=== PATIENT | female | born 1980 ===

== ENCOUNTER 2020-03-14 14:08 | Inpatient (IN) | payer SELFPAY ==
[~2020-03-14 14:08] MED LIST: ETOMIDATE INJ/PF 20 MG/10 ML SDV IV ONE
[2020-03-14] MEDS ORDERED: NALOXONE HCL INJ/PF 0.4 MG/1 ML SDV IV ONE (14:26)
[2020-03-14] MEDS ORDERED: NALOXONE HCL INJ/PF 0.4 MG/1 ML SDV ONE (14:27)
[2020-03-14 14:39] LABS: ABSOLUTE EOSINOPHILS # (AUTO) 0.1 10^3/uL (0.0-0.6); ABSOLUTE LYMPHOCYTES (AUTO) 1.1 10^3/uL (0.5-4.7); ABSOLUTE MONOCYTES (AUTO) 0.4 10^3/uL (0.1-1.4); ABSOLUTE NEUT (AUTO) 7.4 10^3/uL (1.7-8.2); BASOPHILS % (AUTO) 0.5 % (0-2); EOSINOPHILS % (AUTO) 0.8 % (0-6); HEMATOCRIT 31.9 % (36.0-47.0); HEMOGLOBIN 10.8 g/dL (12.0-15.5); LYMPHOCYTES % (AUTO) 12.2 % (13-45); MEAN CORPUSCULAR HEMOGLOBIN 25.7 pg (27.0-33.4); MEAN CORPUSCULAR VOLUME 76 fl (80-97); MONOCYTES % (AUTO) 4.8 % (3-13); PLATELET COUNT 251 10^3/uL (150-450); RED BLOOD COUNT 4.21 10^6/uL (3.72-5.28); RED CELL DISTRIBUTION WIDTH 15.8 % (11.5-14.0); SEGMENTED NEUTROPHILS % (AUTO) 81.7 % (42-78); TOTAL CELLS COUNTED % (AUTO) 100 %; WHITE BLOOD COUNT 9.1 10^3/uL (4.0-10.5)
[2020-03-14] MEDS ORDERED: SUCCINYLCHOLINE CHLORIDE INJ 200 MG/10 ML VIAL IV ONE (14:39)
[2020-03-14 15:03] LABS: ALBUMIN 3.2 g/dL (3.5-5.0); ALKALINE PHOSPHATASE 105 U/L (38-126); ANION GAP 5 (5-19); ASPARTATE AMINO TRANSFERASE 21 U/L (14-36); BILIRUBIN,TOTAL 0.4 mg/dL (0.2-1.3); BLOOD UREA NITROGEN 14 mg/dL (7-20); CALCIUM 8.4 mg/dL (8.4-10.2); CARBON DIOXIDE 25 mmol/L (22-30); CHLORIDE 106 mmol/L (98-107); GLUCOSE 175 mg/dL (75-110); POTASSIUM 4.3 mmol/L (3.6-5.0); TOTAL PROTEIN 6.3 g/dL (6.3-8.2)
[2020-03-14 15:06] LABS: ACETAMINOPHEN < 10 ug/mL (10-30); ALCOHOL < 10 mg/dL (NONE DETECTED); SALICYLATE < 1.0 mg/dL (2.0-20.0)
--- NOTE | 2020-03-14 15:07 | ER Document Report ---
ED General - General Chief Complaint: Overdose Stated Complaint: POSSIBLE OVERDOSE Time Seen by Provider: 03/14/20 14:38 - HPI Notes: Patient is a 39-year-old female with a known history of diabetes who presents to the emergency department after suicide attempt. Evidently at 1130 this morning she told her fianc, [place] the beach, that she was going to commit suicide. She tried to get her insulin but he took it from her. At that point she started taking "handfuls" of Soma. Initially she refused care from EMS, and they left. She was then found to be significantly drowsy and brought into the emergency department for further evaluation. Patient has a GCS of 3 here and can offer me no history. - Related Data Allergies/Adverse Reactions: No Known Allergies Allergy (Verified 03/14/20 15:18) Home Medications: soma. insulin Past Medical History - General Information source: Emergency Med Personnel - Social History Smoking Status: Unknown if Ever Smoked Frequency of alcohol use: None Drug Abuse: None Family History: Other - Unable to review Patient has homicidal ideation: No Endocrine Medical History: Reports: Hx Diabetes Mellitus Type 1 Musculoskeletal Medical History: Reports Hx Musculoskeletal Deformity - Back pain Review of Systems - Review of Systems -: Yes ROS unobtainable due to patient's medical condition Physical Exam - Vital signs Vitals: Resp Pulse Ox 23 H 96 03/14/20 14:16 03/14/20 14:16 - Notes Notes: This is a 39-year-old female who appears her stated age. She is sleeping on the bed. She is not sonorous, but will not awake to painful stimuli. She will not open her eyes. She will not follow commands. Vital signs reviewed, please refer to chart. Head is normocephalic, atraumatic. Pupils equal and round, 5 mm, reactive to light. Neck is supple without meningismus. Heart is regular rate and rhythm. Lungs are clear to auscultation bilaterally. Abdomen is soft, nontender, normoactive bowel sounds throughout. Extremities without cyanosis, clubbing. Peripheral pulses are equal. Skin is warm and dry. No gross facial asymmetry. GCS 3. Course - Re-evaluation Re-evalutation: 03/14/20 16:45 Patient presents to the emergency department for evaluation. She had an intentional overdose of Soma, unknown dosage. Her ingestion was at 1130. By the time she got to me she had a GCS of 3. She had no purposeful movement. She was observed, but I was concerned about her airway, so decision was made to intubate. Please see separate procedure note. Patient was sedated with Versed and then propofol. Her test is pending, but otherwise her laboratory investigations failed to reveal any significant abnormality. IVC paperwork was filled out. We did have frequent titration of her sedation medication secondary to increased movement and agitation, hypertension. I spoke with Dr. Resendiz, he graciously accepted the patient to the unit for further care. 03/14/20 18:31 Patient remained stable, intubated, sedated. Awaiting ICU bed. - Vital Signs Vital signs: Temp Pulse Resp BP Pulse Ox 12 147/90 H 100 03/14/20 17:51 03/14/20 17:51 03/14/20 17:51 - Laboratory Result Diagrams: 03/14/20 14:19 03/14/20 14:19 Laboratory results interpreted by me: 03/14/20 03/14/20 03/14/20 14:19 14:19 15:38 Hgb 10.8 L Hct 31.9 L MCV 76 L MCH 25.7 L RDW 15.8 H Lymph % (Auto) 12.2 L Seg Neutrophils % 81.7 H Sodium 135.5 L Creatinine 0.49 L Glucose 175 H Albumin 3.2 L Urine Protein 30 H Salicylates < 1.0 L Acetaminophen < 10 L - Diagnostic Test Radiology reviewed: Reports reviewed Radiology results interpreted by me: 03/14/20 16:47 Chest X-Ray 03/14/20 15:08 IMPRESSION: Borderline heart size with no zach pulmonary edema. Endotracheal tube and NG tube as described. - EKG Interpretation by Me Additional EKG results interpreted by me: 03/14/20 16:48 Sinus with a rate of 87 bpm. Normal axis and intervals. No acute ST changes concerning for ischemia or infarction. Procedures - Intubation Orotracheal Time of Intubation: 15:03 Mallampati Classification: Class 2 Medications: Etomidate, Succinylcholine Intubation method: Orotracheal Blade type: Raman Blade size: 3 Equipment used: Glidescope ETT size: 7.0 ETT secured at: Lips ETT secured at (cm): 21 Breath Sounds after Intubation: Equal End tidal CO2 confirmed: Yes Critical Care Note - Critical Care Note Total time excluding time spent on procedures (mins): 20 Discharge - Discharge Clinical Impression: Intentional overdose of drug in tablet form, Suicide attempt Condition: Stable Disposition: ADMITTED OBSERVATION Admitting Provider: Martín (Alarm Mechanism Adjuster) Unit Admitted: ICU
[2020-03-14] MEDS ORDERED: PROPOFOL 1,000 MG/100 ML INFUS..BTL IV PRN ×2 (15:09→17:19)
--- NOTE | 2020-03-14 15:13 | PSYCHOLOGICAL NOTE ---
Psych Note - Psych Note Date seen by psych provider: 03/14/20 Time seen by psych provider: 15:00 Psych Note: Clinician received phone call from mobile crisis responder. They report they were called out for an Savannah Mian. Patient reportedly got into an argument with her fianc. Patient's fianc states that the patient has had a difficult week. They are currently here on vacation from the [facility]. She continued to disclose that the patient is type I diabetic and after the argument the patient was attempting to grab her insulin bag however her fianc took it from her. At that point the patient reportedly grabbed Soma 60mg pills and "started eating handfuls." Mobile crisis reports that the patient had an attempt approximately 3 years ago. Patient is currently being intubated. Patient is recommended for full IVC; paperwork is signed, faxed to head of advertising and placed in her chart.
[2020-03-14] MEDS: MIDAZOLAM 2 MG/2 ML INJ IV PRN ×2 (15:34→16:19)
--- NOTE | 2020-03-14 15:43 | RADIOLOGY REPORT (SQ) ---
EXAM DESCRIPTION: CHEST SINGLE VIEW IMAGES COMPLETED DATE/TIME: 03/14/2020 3:30 pm REASON FOR STUDY: ETT placement COMPARISON: None. EXAM PARAMETERS: NUMBER OF VIEWS: One view. TECHNIQUE: Single frontal radiographic view of the chest acquired. RADIATION DOSE: NA LIMITATIONS: None. FINDINGS: LUNGS AND PLEURA: No opacities, masses or pneumothorax. No pleural effusion. MEDIASTINUM AND HILAR STRUCTURES: No masses. Contour normal. HEART AND VASCULAR STRUCTURES: Borderline heart size. BONES: No acute findings. HARDWARE: Endotracheal tube is 4 cm above the shasta. NG tube is well within the stomach. OTHER: No other significant finding. IMPRESSION: Borderline heart size with no zach pulmonary edema. Endotracheal tube and NG tube as d escribed. TECHNICAL DOCUMENTATION: JOB ID: [id number] 2010 [employer]- All Rights Reserved Reading location - IP/workstation name: [email or web address]
[2020-03-14 16:12] LABS: APPEARANCE,URINE CLEAR; BILIRUBIN,URINE NEGATIVE (NEGATIVE); COLOR,URINE YELLOW; GLUCOSE, URINE NEGATIVE (NEGATIVE); KETONES,URINE NEGATIVE (NEGATIVE); LEUKOCYTE ESTERASE,URINE NEGATIVE (NEGATIVE); NITRITE,URINE NEGATIVE (NEGATIVE); PROTEIN,URINE 30 mg/dL (NEGATIVE); URINE SPECIFIC GRAVITY 1.023; UROBILINOGEN,URINE NEGATIVE mg/dL (<2.0)
[2020-03-14 16:34] LABS: URINE AMPHETAMINES SCREEN NEGATIVE; URINE BARBITURATES SCREEN NEGATIVE; URINE BENZODIAZEPINES SCREEN NEGATIVE; URINE COCAINE SCREEN NEGATIVE; URINE MARIJUANA (THC) SCREEN NEGATIVE; URINE METHADONE SCREEN NEGATIVE; URINE PHENCYCLIDINE SCREEN NEGATIVE
[2020-03-14] MEDS ORDERED: ALBUTEROL SULFATE 0.083% NEB 2.5 MG/3 ML AMPUL NEB PRN (17:19)
[2020-03-14] MEDS ORDERED: ACETAMINOPHEN 325 MG TABLET NG PRN (17:19)
[2020-03-14] MEDS ORDERED: DEXTROSE 40% GEL 15 GM TUBE PO PRN ×4 (17:19→17:38)
[2020-03-14] MEDS ORDERED: NORMAL SALINE 1000 ML 1,000 ML IV PRN (17:19)
[2020-03-14] MEDS ORDERED: DEXTROSE 50%-WATER 25 GM/50 ML DISP.SYRIN IV PRN ×4 (17:19→17:38)
[2020-03-14] MEDS ORDERED: GLUCAGON,HUMAN RECOMB 1 MG INJ SUBCUT PRN (17:19)
[2020-03-14] MEDS ORDERED: PHARMACY COMMUNICATION ORDER MC NR (17:30)
[2020-03-14] MEDS ORDERED: GLUCAGON,HUMAN RECOMB 1 MG INJ IM PRN (17:38)
--- NOTE | 2020-03-14 17:38 | CRITICAL CARE ADMISSION REPORT ---
HPI Date:: 03/14/20 Time:: 17:00 Reason for ICU Reason:: Intubated after intentional OD Admission Date/Time & PCP: Admission Date/Time: 03/14/20 17:12 Primary Care Provider: HPI: This patient is a 39 yo woman who has had a 'rough week' according to fiance and took a handle of what was said to be SOMA but there is an empty bottle of Cymbalta at the bedside in the ED. She had a GCS 3 and was intubated for airway protection. She is IVCd and has a history of doing this 3 years ago I am told. History obtained from:: Dr. Guthrie, old records - Diagnosis/Plan (1) Acute respiratory insufficiency Is this a current diagnosis for this admission?: Yes Plan: She has been intubated for airway protection given her GCS of 3. Extubation when awake. (2) Intentional overdose of drug in tablet form Is this a current diagnosis for this admission?: Yes Plan: Either Cymbalta or SOMA or both. No reversel. Will need to wait for metabolism and give IVF. (3) Diabetes Qualifiers: Diabetes mellitus type: type 1 Diabetes mellitus complication status: without complication Qualified Code(s): E10.9 - Type 1 diabetes mellitus without complications Is this a current diagnosis for this admission?: Yes Plan: Will place on sliding scale for now. Plan Summary: Allow for waking and metabolism of drugs than psychiatry/psychology evaluation. Keep IVC till then. Past Medical History Endocrine Medical History: Reports: Diabetes Mellitus Type 1 Social/Family History - Social History Smoking Status: Unknown if Ever Smoked - Medication/Allergies Allergies/Adverse Reactions: No Known Allergies Allergy (Verified 03/14/20 15:18) Review of Systems ROS unobtainable: Due to endotracheal tube, Due to mental status Physical Exam Vital Signs: Temp Pulse Resp BP Pulse Ox 15 135/69 H 99 03/14/20 16:41 03/14/20 16:41 03/14/20 16:41 Intake & Output 03/13/20 03/14/20 03/15/20 06:59 06:59 06:59 Intake Total 13 Balance 13 Weight 81.3 kg Weight/Height Weight 81.3 kg Height 5 ft 4 in General appearance: PRESENT: no acute distress Head exam: PRESENT: atraumatic, normocephalic Eye exam: PRESENT: conjunctiva pink, EOMI, PERRLA. ABSENT: scleral icterus Mouth exam: PRESENT: moist, tongue midline Respiratory exam: PRESENT: clear to auscultation chary, rhonchi - Both sides. ABSENT: rales, wheezes Cardiovascular exam: PRESENT: RRR. ABSENT: diastolic murmur, rubs, systolic murmur GI/Abdominal exam: PRESENT: normal bowel sounds, soft. ABSENT: distended, guarding, mass, organolmegaly, rebound, tenderness Rectal exam: PRESENT: deferred Gentrourinary exam: PRESENT: indwelling catheter Extremities exam: PRESENT: full ROM. ABSENT: calf tenderness, clubbing, pedal edema Neurological exam: PRESENT: CN II-XII grossly intact, other - Moving head and limbs but not purposefully. Skin exam: PRESENT: dry, intact, warm. ABSENT: cyanosis, rash Tubes/Lines: PRESENT: Endotracheal Tube, Nasogastic Tube Laboratory/Radiographs Laboratory Results: 03/14/20 14:19 03/14/20 14:19 03/14/20 03/14/20 03/14/20 14:19 14:19 14:19 WBC 9.1 RBC 4.21 Hgb 10.8 L Hct 31.9 L MCV 76 L MCH 25.7 L MCHC 34.0 RDW 15.8 H Plt Count 251 Seg Neutrophils % 81.7 H Sodium 135.5 L Potassium 4.3 Chloride 106 Carbon Dioxide 25 Anion Gap 5 BUN 14 Creatinine 0.49 L Est GFR ( Amer) > 60 Glucose 175 H Calcium 8.4 Total Bilirubin 0.4 AST 21 Alkaline Phosphatase 105 Total Protein 6.3 Albumin 3.2 L Serum HCG, Qual NEGATIVE Urine Color Urine Appearance Urine pH Ur Specific [place] Urine Protein Urine Glucose (UA) Urine Ketones Urine Blood Urine Nitrite Ur Leukocyte Esterase Urine WBC (Auto) Urine RBC (Auto) 03/14/20 15:38 WBC RBC Hgb Hct MCV MCH MCHC RDW Plt Count Seg Neutrophils % Sodium Potassium Chloride Carbon Dioxide Anion Gap BUN Creatinine Est GFR ( Amer) Glucose Calcium Total Bilirubin AST Alkaline Phosphatase Total Protein Albumin Serum HCG, Qual Urine Color YELLOW Urine Appearance CLEAR Urine pH 6.0 Ur Specific [place] 1.023 Urine Protein 30 H Urine Glucose (UA) NEGATIVE Urine Ketones NEGATIVE Urine Blood NEGATIVE Urine Nitrite NEGATIVE Ur Leukocyte Esterase NEGATIVE Urine WBC (Auto) 2 Urine RBC (Auto) 1 Impressions: Chest X-Ray 03/14/20 15:08 IMPRESSION: Borderline heart size with no zach pulmonary edema. Endotracheal tube and NG tube as described. All labs, radiographs, diagnostic studies and EKGs were personally reviewed: Yes In addition, reports of radiographic and diagnostic studies were read: Yes Critical Time Critical Time (minutes): 40 -: The care of a critically ill patient is dynamic. This note represents a static moment in the admission process. Orders and treatments may be given simultaneously and urgently, and time is not commercial sales representative of the treatment process. This patient requires Critical Care secondary to life threatening organ or limb dysfunction. Without Critical Care services, the patient is at risk for increased mortality and morbidity.
[2020-03-14] MEDS: INSULIN LISPRO 100 UNIT/ML 3 ML VIAL SUBCUT SCH (18:16)
[2020-03-14] MEDS: FAMOTIDINE INJ/PF 20 MG/2 ML SDV IV SCH ×2 (18:17→21:02)
[2020-03-14] MEDS: ENOXAPARIN SODIUM INJ 40 MG/0.4 ML DISP.SYRIN SUBCUT SCH (18:17)
--- NOTE | 2020-03-14 18:34 | EKG REPORT ---
SEVERITY:- NORMAL ECG - SINUS RHYTHM : Confirmed by: Stephen Cormier MD 14-Mar-2020 18:33:43
[2020-03-14] MEDS ORDERED: SUCCINYLCHOLINE CHLORIDE INJ 200 MG/10 ML VIAL ONE (19:23)
[2020-03-14 21:10] LABS: ARTERIAL BLOOD H2CO3 1.15 mmol/L (1.05-1.35); ARTERIAL BLOOD HCO3 23.5 mmol/L (20-24); ARTERIAL BLOOD PCO2 38.3 mmHg (35-45); ARTERIAL BLOOD PH 7.41 (7.35-7.45); ARTERIAL BLOOD PO2 150.8 mmHg (80-100); ARTERIAL BLOOD TOTAL CO2 24.6 mmol/L (21-25)
[2020-03-14 21:12] LABS: ARTERIAL BLOOD FIO2 40%
[2020-03-15] MEDS: INSULIN LISPRO 100 UNIT/ML 3 ML VIAL SUBCUT SCH ×4 (00:25→18:37)
[2020-03-15 05:43] LABS: ABSOLUTE LYMPHOCYTES (AUTO) 0.9 10^3/uL (0.5-4.7); ABSOLUTE MONOCYTES (AUTO) 0.4 10^3/uL (0.1-1.4); ABSOLUTE NEUT (AUTO) 7.8 10^3/uL (1.7-8.2); BASOPHILS % (AUTO) 0.3 % (0-2); EOSINOPHILS % (AUTO) 0.3 % (0-6); HEMATOCRIT 36.6 % (36.0-47.0); HEMOGLOBIN 12.2 g/dL (12.0-15.5); LYMPHOCYTES % (AUTO) 10.2 % (13-45); MEAN CORPUSCULAR HEMOGLOBIN 25.4 pg (27.0-33.4); MEAN CORPUSCULAR HGB CONC 33.2 g/dL (32.0-36.0); MEAN CORPUSCULAR VOLUME 76 fl (80-97); MONOCYTES % (AUTO) 4.7 % (3-13); PLATELET COUNT 256 10^3/uL (150-450); RED BLOOD COUNT 4.79 10^6/uL (3.72-5.28); SEGMENTED NEUTROPHILS % (AUTO) 84.5 % (42-78); TOTAL CELLS COUNTED % (AUTO) 100 %; WHITE BLOOD COUNT 9.2 10^3/uL (4.0-10.5)
[2020-03-15 06:05] LABS: ANION GAP 8 (5-19); BLOOD UREA NITROGEN 11 mg/dL (7-20); CALCIUM 8.8 mg/dL (8.4-10.2); CARBON DIOXIDE 26 mmol/L (22-30); CHLORIDE 101 mmol/L (98-107); GLUCOSE 197 mg/dL (75-110); POTASSIUM 4.2 mmol/L (3.6-5.0)
--- NOTE | 2020-03-15 09:40 | PDOC CRITICAL CARE PROG REPORT ---
General Date:: 03/15/20 ICU Day:: 1 Hospital Day:: 2 Resuscitation Status: Full Code Events in the past 12 to 24 Hours:: Extubated and not currently suicidal. Review of systems relevant to events:: Psychiatric, endocrine Reason for ICU Addmission:: Extubated and ready for downgrade. - Medications: Medications reviewed and adjusted accordingly: Yes Vasopressors:: None Sedation:: None Physical Exam Vital Signs: Temp Pulse Resp BP Pulse Ox 99.9 F 88 23 H 119/60 96 03/15/20 05:19 03/15/20 07:56 03/15/20 06:16 03/15/20 06:16 03/15/20 06:16 Intake & Output 03/14/20 03/15/20 03/16/20 06:59 06:59 06:59 Intake Total 100 Output Total 1535 60 Balance -1435 -60 Weight 83.2 kg Weight/Height Weight 83.2 kg Height 5 ft 4 in General appearance: PRESENT: no acute distress, well-developed, well-nourished Head exam: PRESENT: atraumatic, normocephalic Eye exam: PRESENT: conjunctiva pink, EOMI, PERRLA. ABSENT: scleral icterus Ear exam: PRESENT: normal external ear exam Mouth exam: PRESENT: moist, tongue midline Respiratory exam: PRESENT: clear to auscultation chary. ABSENT: rales, rhonchi, wheezes Cardiovascular exam: PRESENT: RRR. ABSENT: diastolic murmur, rubs, systolic murmur GI/Abdominal exam: PRESENT: normal bowel sounds, soft. ABSENT: distended, guarding, mass, organolmegaly, rebound, tenderness Rectal exam: PRESENT: deferred Gentrourinary exam: PRESENT: indwelling catheter Extremities exam: PRESENT: full ROM. ABSENT: calf tenderness, clubbing, pedal edema Musculoskeletal exam: PRESENT: normal inspection Neurological exam: PRESENT: alert, awake, oriented to person, oriented to place, oriented to time, oriented to situation, CN II-XII grossly intact. ABSENT: motor sensory deficit Psychiatric exam: PRESENT: anxious, appropriate affect, normal mood, other - Tearful. ABSENT: homicidal ideation, suicidal ideation Skin exam: PRESENT: dry, intact, warm. ABSENT: cyanosis, rash Laboratory/Radiographs Laboratory Results: 03/15/20 05:19 03/15/20 05:19 03/14/20 03/14/20 03/14/20 14:19 14:19 14:19 WBC 9.1 RBC 4.21 Hgb 10.8 L Hct 31.9 L MCV 76 L MCH 25.7 L MCHC 34.0 RDW 15.8 H Plt Count 251 Seg Neutrophils % 81.7 H Carbonic Acid HCO3/H2CO3 Ratio ABG pH ABG pCO2 ABG pO2 ABG HCO3 ABG O2 Saturation ABG Base Excess FiO2 Sodium 135.5 L Potassium 4.3 Chloride 106 Carbon Dioxide 25 Anion Gap 5 BUN 14 Creatinine 0.49 L Est GFR ( Amer) > 60 Glucose 175 H Calcium 8.4 Total Bilirubin 0.4 AST 21 Alkaline Phosphatase 105 Total Protein 6.3 Albumin 3.2 L Serum HCG, Qual NEGATIVE Urine Color Urine Appearance Urine pH Ur Specific [place] Urine Protein Urine Glucose (UA) Urine Ketones Urine Blood Urine Nitrite Ur Leukocyte Esterase Urine WBC (Auto) Urine RBC (Auto) 03/14/20 03/14/20 03/14/20 15:38 18:57 20:45 WBC RBC Hgb Hct MCV MCH MCHC RDW Plt Count Seg Neutrophils % Carbonic Acid Cancelled 1.15 HCO3/H2CO3 Ratio Cancelled 20:1 ABG pH Cancelled 7.41 ABG pCO2 Cancelled 38.3 ABG pO2 Cancelled 150.8 H ABG HCO3 Cancelled 23.5 ABG O2 Saturation Cancelled 99.0 H ABG Base Excess Cancelled -1.0 FiO2 Cancelled 40% Sodium Potassium Chloride Carbon Dioxide Anion Gap BUN Creatinine Est GFR ( Amer) Glucose Calcium Total Bilirubin AST Alkaline Phosphatase Total Protein Albumin Serum HCG, Qual Urine Color YELLOW Urine Appearance CLEAR Urine pH 6.0 Ur Specific [place] 1.023 Urine Protein 30 H Urine Glucose (UA) NEGATIVE Urine Ketones NEGATIVE Urine Blood NEGATIVE Urine Nitrite NEGATIVE Ur Leukocyte Esterase NEGATIVE Urine WBC (Auto) 2 Urine RBC (Auto) 1 03/15/20 03/15/20 05:19 05:19 WBC 9.2 RBC 4.79 Hgb 12.2 Hct 36.6 MCV 76 L MCH 25.4 L MCHC 33.2 RDW 16.0 H Plt Count 256 Seg Neutrophils % 84.5 H Carbonic Acid HCO3/H2CO3 Ratio ABG pH ABG pCO2 ABG pO2 ABG HCO3 ABG O2 Saturation ABG Base Excess FiO2 Sodium 135.3 L Potassium 4.2 Chloride 101 Carbon Dioxide 26 Anion Gap 8 BUN 11 Creatinine 0.51 L Est GFR ( Amer) > 60 Glucose 197 H Calcium 8.8 Total Bilirubin AST Alkaline Phosphatase Total Protein Albumin Serum HCG, Qual Urine Color Urine Appearance Urine pH Ur Specific [place] Urine Protein Urine Glucose (UA) Urine Ketones Urine Blood Urine Nitrite Ur Leukocyte Esterase Urine WBC (Auto) Urine RBC (Auto) Impressions: Chest X-Ray 03/14/20 15:08 IMPRESSION: Borderline heart size with no zach pulmonary edema. Endotracheal tube and NG tube as described. All labs, radiographs, diagnostic studies and EKGs were personally reviewed: Yes In addition, reports of radiographic and diagnostic studies were read: Yes Assessment and Plan - Diagnosis (1) Acute respiratory insufficiency Is this a current diagnosis for this admission?: Yes Plan: Resolved and extubated (2) Intentional overdose of drug in tablet form Is this a current diagnosis for this admission?: Yes Plan: Remains IVC. Currently tearful, not suicidal. import specialist to see today. Further treatment depending on assessment (3) Diabetes Qualifiers: Diabetes mellitus type: type 1 Diabetes mellitus complication status: without complication Qualified Code(s): E10.9 - Type 1 diabetes mellitus without complications Is this a current diagnosis for this admission?: Yes Plan: Will start diet and check BG Plan Summary: Depending on assessment results she may need inpatient treatment or out patient referal. She is cleared medically and will be downgraded. Critical Time Critical Time (minutes): 25 Level of Care: MEDICAL Anticipated discharge: Home Within: Other -: 1. The care of a critical patient is a dynamic process. This note is a outside sales representative synopsis but static in nature. The timeframe for treatments given in order is not necessarily the actual time these treatments may have been done. 2. This patient requires critical care secondary to ongoing requirements for therapy not offered or safe outside the critical care environment. Transfer to a lower level of care will result in altered life or limb morbidity and mortality. 3. Multidisciplinary rounds completed. 4. ABCDE bundle addressed.
[2020-03-15] MEDS: ONDANSETRON 4 MG TAB.RAPDIS PO PRN (10:26)
[2020-03-15] MEDS: OXYCODONE HCL IR 5 MG TABLET PO PRN ×4 (10:26→23:35)
[2020-03-15] MEDS: ENOXAPARIN SODIUM INJ 40 MG/0.4 ML DISP.SYRIN SUBCUT SCH (10:27)
[2020-03-16] MEDS: OXYCODONE HCL IR 5 MG TABLET PO PRN ×2 (06:19→10:20)
[2020-03-16] MEDS: INSULIN LISPRO 100 UNIT/ML 3 ML VIAL SUBCUT SCH ×2 (06:20)
[2020-03-16 08:20] VITALS: BP 160/86
[2020-03-16] MEDS: ONDANSETRON 4 MG TAB.RAPDIS PO PRN (09:04)
[2020-03-16] MEDS ORDERED: GABAPENTIN 300 MG CAPSULE PO ONE ×2 (09:18→10:00)
[2020-03-16] MEDS ORDERED: AMITRIPTYLINE HCL 75 MG TABLET PO SCH (10:00)
[2020-03-16] MEDS ORDERED: METHOCARBAMOL 750 MG TABLET PO SCH (10:00)
[2020-03-16] MEDS ORDERED: GABAPENTIN 400 MG CAPSULE PO ONE (10:00)
[2020-03-16] MEDS ORDERED: DULOXETINE HCL 20 MG CAPSULE.DR PO SCH (10:00)
[2020-03-16] MEDS ORDERED: LISINOPRIL 10 MG TABLET PO SCH (10:00)
[2020-03-16] MEDS ORDERED: PANTOPRAZOLE SODIUM 20 MG TABLET.DR PO SCH (10:00)
[2020-03-16] MEDS: ENOXAPARIN SODIUM INJ 40 MG/0.4 ML DISP.SYRIN SUBCUT SCH (10:20)
--- NOTE | 2020-03-16 11:44 | PDOC DISCHARGE SUMMARY ---
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 She has been under much stress and after an argument with her boyfreind Tuesday she took and intintional OD of Cymbalta and was breifly intubated for airway protection and extubated Sat morning. She is awake, alert, forward thinking and has a plan for follow up. She has been seen by P. - Additional Information Resuscitation Status: Full Code Discharge Diet: Diabetic Discharge Activity: Activity As Tolerated Home Medications: Duloxetine HCl [Cymbalta] 60 mg PO DAILY 03/14/20 Insulin Glargine,Hum.rec.anlog [Toujeo Solostar] 0 units SQ DAILY 03/14/20 History of Present Illiness History of Present Illness: This patient is a 39 yo woman who has had a 'rough week' according to fiance and took a handle of what was said to be SOMA but there is an empty bottle of Cymbalta at the bedside in the ED. She had a GCS 3 and was intubated for airway protection. She is IVCd and has a history of doing this 3 years ago I am told. Hospital Course Hospital Course: She was quicklty extubated after a few hours. She has been awake, eating walking, wanting to go home. BG controlled. Physical Exam Vital Signs: Temp Pulse Resp BP Pulse Ox 98.2 F 102 H 14 160/86 H 99 03/16/20 08:00 03/16/20 08:00 03/16/20 06:00 03/16/20 08:16 03/16/20 06:00 Intake & Output 03/15/20 03/16/20 03/17/20 06:59 06:59 06:59 Intake Total 100 175 Output Total 1535 770 0 Balance -1435 -595 0 Weight 83.2 kg 80.2 kg General appearance: PRESENT: no acute distress, well-developed, well-nourished Head exam: PRESENT: atraumatic, normocephalic Eye exam: PRESENT: conjunctiva pink, EOMI, PERRLA. ABSENT: scleral icterus Ear exam: PRESENT: normal external ear exam Mouth exam: PRESENT: moist, tongue midline Respiratory exam: PRESENT: clear to auscultation chary. ABSENT: rales, rhonchi, wheezes Cardiovascular exam: PRESENT: RRR. ABSENT: diastolic murmur, rubs, systolic murmur GI/Abdominal exam: PRESENT: normal bowel sounds, soft. ABSENT: distended, guarding, mass, organolmegaly, rebound, tenderness Rectal exam: PRESENT: deferred Extremities exam: PRESENT: full ROM. ABSENT: calf tenderness, clubbing, pedal edema Neurological exam: PRESENT: alert, awake, oriented to person, oriented to place, oriented to time, oriented to situation, CN II-XII grossly intact. ABSENT: motor sensory deficit Psychiatric exam: PRESENT: appropriate affect, normal mood. ABSENT: homicidal ideation, suicidal ideation Skin exam: PRESENT: dry, intact, warm. ABSENT: cyanosis, rash Results Laboratory Results: WBC 9.2 10^3/uL (4.0-10.5) 03/15/20 05:19 RBC 4.79 10^6/uL (3.72-5.28) 03/15/20 05:19 Hgb 12.2 g/dL (12.0-15.5) 03/15/20 05:19 Hct 36.6 % (36.0-47.0) 03/15/20 05:19 MCV 76 fl (80-97) L 03/15/20 05:19 MCH 25.4 pg (27.0-33.4) L 03/15/20 05:19 MCHC 33.2 g/dL (32.0-36.0) 03/15/20 05:19 RDW 16.0 % (11.5-14.0) H 03/15/20 05:19 Plt Count 256 10^3/uL (150-450) 03/15/20 05:19 Lymph % (Auto) 10.2 % (13-45) L 03/15/20 05:19 [place] % (Auto) 4.7 % (3-13) 03/15/20 05:19 Eos % (Auto) 0.3 % (0-6) 03/15/20 05:19 Baso % (Auto) 0.3 % (0-2) 03/15/20 05:19 Absolute Neuts (auto) 7.8 10^3/uL (1.7-8.2) 03/15/20 05:19 Absolute Lymphs (auto) 0.9 10^3/uL (0.5-4.7) 03/15/20 05:19 Absolute Monos (auto) 0.4 10^3/uL (0.1-1.4) 03/15/20 05:19 Absolute Eos (auto) 0.0 10^3/uL (0.0-0.6) 03/15/20 05:19 Absolute Basos (auto) 0.0 10^3/uL (0.0-0.2) 03/15/20 05:19 Seg Neutrophils % 84.5 % (42-78) H 03/15/20 05:19 Carbonic Acid 1.15 mmol/L (1.05-1.35) 03/14/20 20:45 HCO3/H2CO3 Ratio 20:1 03/14/20 20:45 ABG pH 7.41 (7.35-7.45) 03/14/20 20:45 ABG pCO2 38.3 mmHg (35-45) 03/14/20 20:45 ABG pO2 150.8 mmHg (80-100) H 03/14/20 20:45 ABG HCO3 23.5 mmol/L (20-24) 03/14/20 20:45 ABG Total CO2 24.6 mmol/L (21-25) 03/14/20 20:45 ABG O2 Saturation 99.0 % (94-98) H 03/14/20 20:45 ABG Base Excess -1.0 mmol/L 03/14/20 20:45 FiO2 40% 03/14/20 20:45 Sodium 135.3 mmol/L (137-145) L 03/15/20 05:19 Potassium 4.2 mmol/L (3.6-5.0) 03/15/20 05:19 Chloride 101 mmol/L (98-107) 03/15/20 05:19 Carbon Dioxide 26 mmol/L (22-30) 03/15/20 05:19 Anion Gap 8 (5-19) 03/15/20 05:19 BUN 11 mg/dL (7-20) 03/15/20 05:19 Creatinine 0.51 mg/dL (0.52-1.25) L 03/15/20 05:19 Est GFR ( Amer) > 60 (>60) 03/15/20 05:19 Est GFR (MDRD) Non-Af > 60 (>60) 03/15/20 05:19 Glucose 197 mg/dL (75-110) H 03/15/20 05:19 POC Glucose 125 mg/dL (70-110) H 03/16/20 06:18 Calcium 8.8 mg/dL (8.4-10.2) 03/15/20 05:19 Total Bilirubin 0.4 mg/dL (0.2-1.3) 03/14/20 14:19 Direct Bilirubin 0.0 mg/dL (0.0-0.4) 03/14/20 14:19 Neonat Total Bilirubin Not Reportable 03/14/20 14:19 Neonat Direct Bilirubin Not Reportable 03/14/20 14:19 Neonat Indirect Bili Not Reportable 03/14/20 14:19 AST 21 U/L (14-36) 03/14/20 14:19 ALT 14 U/L (<35) 03/14/20 14:19 Alkaline Phosphatase 105 U/L (38-126) 03/14/20 14:19 Total Protein 6.3 g/dL (6.3-8.2) 03/14/20 14:19 Albumin 3.2 g/dL (3.5-5.0) L 03/14/20 14:19 Serum HCG, Qual NEGATIVE (NEGATIVE) 03/14/20 14:19 Urine Color YELLOW 03/14/20 15:38 Urine Appearance CLEAR 03/14/20 15:38 Urine pH 6.0 (5.0-9.0) 03/14/20 15:38 Ur Specific [place] 1.023 03/14/20 15:38 Urine Protein 30 mg/dL (NEGATIVE) H 03/14/20 15:38 Urine Glucose (UA) NEGATIVE mg/dL (NEGATIVE) 03/14/20 15:38 Urine Ketones NEGATIVE mg/dL (NEGATIVE) 03/14/20 15:38 Urine Blood NEGATIVE (NEGATIVE) 03/14/20 15:38 Urine Nitrite NEGATIVE (NEGATIVE) 03/14/20 15:38 Urine Bilirubin NEGATIVE (NEGATIVE) 03/14/20 15:38 Urine Urobilinogen NEGATIVE mg/dL (<2.0) 03/14/20 15:38 Ur Leukocyte Esterase NEGATIVE (NEGATIVE) 03/14/20 15:38 Urine WBC (Auto) 2 /HPF 03/14/20 15:38 Urine RBC (Auto) 1 /HPF 03/14/20 15:38 U Hyaline Cast (Auto) 1 /LPF 03/14/20 15:38 Squamous Epi Cells Auto 1 /HPF 03/14/20 15:38 Urine Mucus (Auto) MANY /LPF 03/14/20 15:38 Urine Ascorbic Acid NEGATIVE (NEGATIVE) 03/14/20 15:38 Salicylates < 1.0 mg/dL (2.0-20.0) L 03/14/20 14:19 Urine Opiates Screen NEGATIVE 03/14/20 15:38 Urine Methadone Screen NEGATIVE 03/14/20 15:38 Acetaminophen < 10 ug/mL (10-30) L 03/14/20 14:19 Ur Barbiturates Screen NEGATIVE 03/14/20 15:38 Ur Phencyclidine Scrn NEGATIVE 03/14/20 15:38 Ur Amphetamines Screen NEGATIVE 03/14/20 15:38 U Benzodiazepines Scrn NEGATIVE 03/14/20 15:38 Urine Cocaine Screen NEGATIVE 03/14/20 15:38 U Marijuana (THC) Screen NEGATIVE 03/14/20 15:38 Serum Alcohol < 10 mg/dL (NONE DETECTED) 03/14/20 14:19 EKG Comments: NSR Impressions: Chest X-Ray 03/14/20 15:08 IMPRESSION: Borderline heart size with no zach pulmonary edema. Endotracheal tube and NG tube as described. Plan Health Concerns: Cotinued psychologic stress. Plan of Treatment: Plan to meet with therapist in [facility]. Cotinue meds with Cymbalta at 30 mg. Goals: Relieve stress of caretaking while still involved in father's care. Critical Time: 30 Level of Care: MEDICAL Stroke Is this a Stroke Patient?: No Acute Heart Failure - Is this a Heart Failure Patient?: No
[2020-03-16] MEDS ORDERED: GABAPENTIN 300 MG CAPSULE PO SCH (15:00)
[2020-03-16] MEDS ORDERED: GABAPENTIN 400 MG CAPSULE PO SCH (15:00)
== END 2020-03-16 14:00 | disposition home or self-care (01) | DRG 918 ==
LOC: ER 14:08 → EH 17:12 → ICU 19:48
PROVIDERS: ADMIT Anesthesiology; ATTEND Anesthesiology
PROC: 0BH17EZ Insertion of Endotracheal Airway into Trachea, Via Natural or Artificial Opening (ICD-10-PCS; principal; 2020-03-14)
PROC: 5A1935Z Respiratory Ventilation, Less than 24 Consecutive Hours (ICD-10-PCS; 2020-03-14)
DX: T43.212A Poisoning by selective serotonin and norepinephrine reuptake inhibitors, intentional self-harm, initial encounter (principal); E10.9 Type 1 diabetes mellitus without complications; Z63.6 Dependent relative needing care at home; Y92.832 Beach as the place of occurrence of the external cause
CPT/HCPCS: 36415; 51702; 71045; 80048; 80053; 80307; 81001; 82803; 82962; 84703; 85025; 93005; 93010; 94002; 94003; 96374; 99285; J0330; J1650; J1815; J2250; J2310; J2704; J3490; S0028; S0119